=== PATIENT | male | born 1980 | race Caucasian/White ===

== ENCOUNTER 2019-10-12 18:11 | Emergency (ER) | payer OTHER ==
[~2019-10-12] VITALS: Ht 190.5 cm; Wt 120.2 kg
[2019-10-12 18:20] VITALS: BP 150/101
[2019-10-12] MEDS ORDERED: FLEXERIL PO (18:22)
== END 2019-10-12 18:47 | disposition home or self-care (01) ==
LOC: M.ERS 18:11
DX: S71.112A Laceration without foreign body, left thigh, initial encounter (principal); W26.0XXA Contact with knife, initial encounter; Y93.89 Activity, other specified; Y92.89 Other specified places as the place of occurrence of the external cause; Y99.8 Other external cause status

== ENCOUNTER 2019-10-22 09:04 | Emergency (ER) | payer OTHER ==
[~2019-10-22] VITALS: Ht 190.5 cm; Wt 117.9 kg
[~2019-10-22 09:04] MED LIST: FLEXERIL PO
[2019-10-22 09:41] VITALS: BP 166/79
== END 2019-10-22 09:42 | disposition home or self-care (01) ==
LOC: M.ERS 09:04
DX: S71.112D Laceration without foreign body, left thigh, subsequent encounter (principal); X58.XXXD Exposure to other specified factors, subsequent encounter